=== PATIENT | male | born 1970 | race Caucasian/White ===

== ENCOUNTER 2017-07-26 02:43 | Inpatient (IN) | payer OTHER ==
[~2017-07-26] VITALS: Ht 182.9 cm; Wt 95.8 kg
[2017-07-26 03:09] VITALS: Ht 182.9 cm; Wt 95.8 kg
[2017-07-26 04:45] LABS: BASOPHIL % 0.2 % (0-2); PLATELET COUNT 385 x10^3mcL (130-400)
[2017-07-26 04:52] LABS: CALCIUM 8.3 mg/dL (8.5-10.1); CARBON DIOXIDE 27.7 mmol/L (21-32); CHLORIDE SERUM 103 mmol/L (98-107); GFR1 > 60 mL/min; GLUCOSE SERUM 150 mg/dL (74-106); POTASSIUM SERUM 3.1 mmol/L (3.5-5.1); SODIUM SERUM 141 mmol/L (136-145)
[2017-07-26 04:58] LABS: ALBUMIN 3.7 g/dL (3.4-5.0); ALKALINE PHOSPHATASE 91 U/L (46-116); ALT/SGPT 38 U/L (16-63); AST/SGOT 22 U/L (15-37); BILIRUBIN TOTAL 0.53 mg/dL (0.20-1.00); LIPASE 106 IU/L (73-393); TOTAL PROTEIN, SERUM 7.3 g/dL (6.4-8.2)
[2017-07-26] MEDS ORDERED: HYDROCHLOROTH12.5 M2 PO (08:44)
[2017-07-26] MEDS ORDERED: ZEGERID1 CA1 PO (08:44)
[2017-07-26 10:19] LABS: CHOLESTEROL/HDL RATIO 3.2; MAGNESIUM 1.7 mg/dL (1.8-2.4); PHOSPHOROUS 3.5 mg/dL (2.5-4.9)
[2017-07-26 10:29] LABS: FREE T4 1.39 ng/dL (0.76-1.46); FREE THYROXINE INDEX 3.2 ug/dL (1.4-4.5); T4(THYROXINE) 8.7 ug/dL (4.7-13.3)
[2017-07-26 11:34] LABS: T3 TOTAL 1.03 ng/mL
[2017-07-26 12:35] VITALS: BP 150/100
[2017-07-26 13:16] VITALS: BP 150/100
[2017-07-26 17:27] VITALS: BP 146/93
[2017-07-26 18:51] LABS: microscopic required? NO
[2017-07-26 19:01] LABS: UA SPECIFIC GRAVITY 1.025 (1.005-1.035); urine erythrocyte NEGATIVE (NEGATIVE)
[2017-07-26 19:10] LABS: AMPHETAMINE QUAL UR NONE DETECTED (NEG <=1000)
[2017-07-26 20:59] VITALS: BP 143/93
[2017-07-27 06:00] VITALS: BP 146/94
[2017-07-27 06:36] LABS: BASOPHIL % 0.2 % (0-2); PLATELET COUNT 351 x10^3mcL (130-400); RED CELL DISTRIBUTION WIDTH 13.1 % (11.5-14.5)
[2017-07-27 07:01] LABS: CALCIUM 7.8 mg/dL (8.5-10.1); CARBON DIOXIDE 26.7 mmol/L (21-32); CHLORIDE SERUM 103 mmol/L (98-107); CREATININE SERUM 1.2 mg/dL (0.7-1.3); GFR1 > 60 mL/min; GLUCOSE SERUM 121 mg/dL (74-106); MAGNESIUM 1.9 mg/dL (1.8-2.4); PHOSPHOROUS 2.3 mg/dL (2.5-4.9); POTASSIUM SERUM 3.6 mmol/L (3.5-5.1); SODIUM SERUM 140 mmol/L (136-145)
[2017-07-27 14:10] VITALS: BP 135/90
[2017-07-27 16:49] VITALS: BP 125/75
[2017-07-27 20:09] VITALS: BP 115/81
[2017-07-28 05:40] VITALS: BP 122/83
[2017-07-28 06:22] LABS: BASOPHIL % 0.3 % (0-2); PLATELET COUNT 271 x10^3mcL (130-400); RED CELL DISTRIBUTION WIDTH 13.3 % (11.5-14.5)
[2017-07-28 06:48] LABS: CALCIUM 8.1 mg/dL (8.5-10.1); CARBON DIOXIDE 26.7 mmol/L (21-32); CHLORIDE SERUM 102 mmol/L (98-107); GFR1 > 60 mL/min; GLUCOSE SERUM 115 mg/dL (74-106); MAGNESIUM 1.9 mg/dL (1.8-2.4); PHOSPHOROUS 2.6 mg/dL (2.5-4.9); POTASSIUM SERUM 3.5 mmol/L (3.5-5.1); SODIUM SERUM 136 mmol/L (136-145)
[2017-07-28 09:03] VITALS: BP 137/90
[2017-07-28] MEDS ORDERED: CEPHALEXIN250 MG PO (12:22)
[2017-07-28] MEDS ORDERED: LAC PO (12:22)
[2017-07-28 14:38] VITALS: BP 137/90
== END 2017-07-28 15:52 | disposition home or self-care (01) | DRG 418 ==
LOC: ED 02:43 → DU 08:57 → MU 08:57 → DU 12:28 → MU 07-27 08:48
PROVIDERS: Family Medicine; Student in an Organized Health Care Education/Training Program; Surgery
PROC: 0FT44ZZ Resection of Gallbladder, Percutaneous Endoscopic Approach (ICD-10-PCS; principal; 2017-07-27 08:00)
DX: K80.00 Calculus of gallbladder with acute cholecystitis without obstruction (principal); D68.69 Other thrombophilia; K21.9 Gastro-esophageal reflux disease without esophagitis; I10 Essential (primary) hypertension; I16.0 Hypertensive urgency; F12.90 Cannabis use, unspecified, uncomplicated; R73.03 Prediabetes; E78.5 Hyperlipidemia, unspecified; E87.6 Hypokalemia; E83.41 Hypermagnesemia; Z79.899 Other long term (current) drug therapy; Z87.891 Personal history of nicotine dependence; Z83.3 Family history of diabetes mellitus; Z82.49 Family history of ischemic heart disease and other diseases of the circulatory system
CPT/HCPCS: 83880; 84439; C9113; J0330; J0690; J1170; J1644; J1885; J2175; J2250; J2405; J2543; J2704; J2710; J3010; J3475; J3480; J3490; J7030; J7120; Q0092